=== PATIENT | male | born 1985 | race Caucasian/White ===

== ENCOUNTER 2020-05-28 21:58 | Emergency (ER) | payer OTHER, SELFPAY ==
[2020-05-28 22:36] VITALS: BP 124/67; PULSE 80; RESP 18; TEMP 36.7; O2SAT 98; BMI 18.0
--- NOTE | 2020-05-28 23:02 | ED_ITS ---
HPI - Male Genitourinary General Chief complaint: Urogenital-Male Stated complaint: genital pain Time Seen by Provider: 05/28/20 22:54 Source: patient Mode of arrival: ambulatory Limitations: no limitations History of Present Illness HPI Narrative: 35-year-old male with no significant past medical history presents with penile discharge, penile pain, and tissue excoriation for approximately 2 weeks. He does report having unprotected sex with a new partner. He does report dysuria. He does not describe any testicular pain, fevers, chills, suprapubic pain, abdominal pain, nausea, vomiting, diarrhea, constipation, or any other concerning symptoms. MD Complaint: penile discharge, dysuria and possible STD exposure Onset (ago): week(s) (2) Duration: constant Location: penis Severity: moderate Severity scale (1-10): 7 Quality: aching and burning Relieving factors: none Exacerbating factors: urination, palpation, movement and sexual intercourse Context: known STD exposure Associated symptoms: Reports discharge, rash and dysuria Related Data Sexually active: Yes Previous Rx's Medication Instructions Recorded doxycycline monohydrate 100 mg PO BID 10 Days #20 tab 05/28/20 Allergies Allergy/AdvReac Type Severity Reaction Status Date / Time No Known Allergies Allergy Verified 05/28/20 22:27 [No Known Allergies*] Review of Systems Review of Systems: Constitutional: No Fever, No Chills ENT/Mouth: No Ear Pain, No Hoarseness, No sore throat Eyes: No Eye Pain, No Swelling, No Redness, No Foreign Body Cardiovascular: No Chest Pain, No SOB Respiratory: No Cough, No Dyspnea Gastrointestinal: No Nausea, No Vomiting, No Diarrhea, No abdominal Pain Genitourinary: Positive penile discharge, penile irritation and erythema, Dysuria, No Hematuria Musculoskeletal: No joint pain, No Myalgias, No Joint Swelling Skin: No Skin lacerations, No rash Neuro: No Weakness, No Numbness, No Paresthesias, No Loss of Consciousness, No Dizziness, No Headache Psych: No Anxiety/Panic, No Depression Heme/Lymph: no easy bruising, no Lymphadenopathy Endocrine: No Polyuria, No Polydipsia Yes all other systems are reviewed and are negative [facility] Past Medical History Attestation statement: The following information was validated with the patient. Medical History (Updated 05/28/20 @ 23:47 by Morelia Acosta NP) Healthy adult Social History Social History Advance Directives: No Physical Exam Vital Signs: Vital Signs: Last Vital Signs Temp 99.1 F 05/29/20 00:00 Pulse 65 05/29/20 00:00 Resp 18 05/29/20 00:00 BP 117/79 05/29/20 00:00 Pulse Ox 100 05/29/20 00:00 Body Mass Index 18.0 Appearance: Alert. Oriented X3. Moderate distress. Eyes: Pupils equal, round and reactive to light. ENT: Pharynx normal. Neck: Normal inspection. Neck supple. CVS: Normal heart rate and rhythm. Pulses normal. Respiratory: No respiratory distress. Breath sounds normal. Abdomen: Soft and nontender. Skin: Skin warm and dry. Normal skin color. Normal skin turgor. Genitourinary: Erythema and excoriation to the glans, shaft and foreskin of the penis, copious amounts of clear drainage, chancer noted to the base of his penis. Testicular exam is normal, no pain to testicles, no lymphadenopathy to inguinal Extremities: No lower extremity edema. Neuro: No motor deficit. No sensory deficit. Course Course Course Narrative: 35-year-old male presents with penile pain, penile discharge, penile excoriation and dysuria for 2 weeks after unprotected sex. Plan of care is to test and treat for chlamydia, gonorrhea, and syphilis. Patient has excoriation to the glans and foreskin is extensive consistent with STI epididymitis and balantitis. We will add a 10 day course of doxycycline and encourage patient to refrain from sexual activity until he is symptom-free. Patient verbalized understanding of and agrees to plan of care to discharge home. MDM - Male Genitourinary MDM Narrative Medical decision making narrative: Sexually transmitted infection Differential Diagnosis Differential diagnosis: Likely urinary tract infection, urethritis, epididymitis and genital herpes simplex Medical Records Attestation: I reviewed the patient's medical records. Lab Data Attestation: I reviewed the patient's lab results. Labs: Lab Results 05/28/20 Range/Units 22:43 Urine Color YELLOW Urine Appearance CLEAR Urine pH 6.5 (5.0-8.0) Ur Specific Benedict 1.025 (1.005-1.025) Urine Protein NEG (NEG-TRACE) MG/DL Urine Glucose (UA) NEG (NEG) MG/DL Urine Ketones NEG (NEG) MG/DL Urine Blood NEG (NEG) Urine Nitrite NEG (NEG) Ur Leukocyte Esterase NEG (NEG) Discharge Plan Discharge Clinical Impression: Sexually transmitted infection, Epididymitis, Urethritis Patient Disposition: Home, Self-Care Instructions: Sexually Transmitted Diseases (ED), Epididymitis (ED) Additional Instructions: Se le evalu? y se le trat? para la clamidia, la gonorrea y la s?filis. Te tratamos con ceftriaxona, azitromicina y penicilina. Por favor, tome doxiciclina chet los pr?ximos 10 d?as. Abstenerse de la actividad sexual hasta que los s?ntomas se hayan aclarado y haya completado irasema antibi?ticos. Si los s?ntomas persisten, shine un seguimiento con tapices y con page m?dico de atenci?n primaria. Matt por elegir selena departamento de emergencias para la evaluaci?n. Por favor, shine un seguimiento con el m?dico de atenci?n primaria seg?n sea necesario. Regrese al servicio de urgencias para cualquier s?ntoma nuevo, preocupante o que empeore. You were evaluated and treated for chlamydia, gonorrhea and syphilis. We did treat you with ceftriaxone, azithromycin and penicillin. Please take doxycycline for the next 10 days. Refrain from sexual activity until symptoms have cleared and you have completed your antibiotics. If symptoms persist please follow-up with [facility] and or your primary care physician. Thank you for choosing this emergency department for evaluation. Please follow- up with primary care physician as needed. Return to the emergency department for any new, concerning, or worsening symptoms. Prescriptions: New doxycycline monohydrate 100 mg tablet 100 mg PO BID 10 Days Qty: 20 RF: 0 Print Language: Bahamian
[2020-05-28 23:14] LABS: Glucose Urine UA NEG (NEG); Leukocyte Esterase Urine NEG (NEG); Nitrite Urine NEG (NEG); PH 6.5 (5.0-8.0); Specific Gravity - Urine 1.025 (1.005-1.025); Urine Blood NEG (NEG); Urine Ketones NEG (NEG); Urine Protein NEG (NEG-TRACE)
[2020-05-28 23:15] LABS: Appearance Urine CLEAR; Color Urine YELLOW
[2020-05-28] MEDS: Azithromycin 500 MG TABLET 1000 MG PO (23:24)
[2020-05-28] MEDS: cefTRIAXone sodium 500 MG, Lidocaine HCl 1 % MPF 1 ML IM (23:25)
[2020-05-28] MEDS: Penicillin G Benzathine 2,400,000 UNIT/4 ML SYRINGE 2400000 UNIT IM (23:26)
[2020-05-29] VITALS: BP 117/79; PULSE 65; RESP 18; TEMP 37.3; O2SAT 100
[2020-05-29 04:10] LABS: Syphilis Screen Nonreactive (Nonreactive)
[2020-05-30 18:27] LABS: C. trachomatis RNA TMA DETECTED (NOT DETECTED); N. gonorrhoeae RNA TMA NOT DETECTED (NOT DETECTED)
== END 2020-05-29 01:30 | disposition home or self-care (01) ==
PROVIDERS: Nurse Practitioner Family; Emergency Provider Emergency Medicine
DX: N45.1 Epididymitis (principal); N34.2 Other urethritis; Z20.2 Contact with and (suspected) exposure to infections with a predominantly sexual mode of transmission
CPT/HCPCS: 36415; 81003; 86780; 87491; 87591; 96372; 99284; J0561; J0696

== ENCOUNTER 2021-09-08 07:22 | Emergency (ER) | payer OTHER, SELFPAY ==
[2021-09-08 07:28] VITALS: BP 131/66; PULSE 90; RESP 20; TEMP 36.8; O2SAT 99; BMI 17.7
--- NOTE | 2021-09-08 08:14 | ED_ITS ---
HPI - Abdominal Pain General Chief Complaint: Abdominal Pain Stated Complaint: Abd/Vomiting Time Seen by Provider: 09/08/21 08:07 Source: patient, family and sign language interpreter Mode of arrival: ambulatory Limitations: no limitations History of Present Illness HPI narrative: 36-year-old male came in for evaluation of abdominal pain, vomiting. Patient's symptoms started since yesterday after ate cheese sticks at a resta urant, another family member ate same food and presented with the same symptoms to the ED, patient is complaining of epigastric pain associated with nausea and vomiting with nonbloody watery diarrhea no fever, patient declined any recent use of antibiotic or recent travel. No past surgical history. Related Data Previous Rx's Medication Instructions Recorded doxycycline monohydrate 100 mg 100 mg PO BID 10 Days #20 tab 05/28/20 tablet omeprazole 20 mg capsule,delayed 20 mg PO BID #30 cap 09/08/21 release ondansetron HCl 4 mg tablet 4 mg PO Q8H PRN 3 Days #6 tab 09/08/21 Allergies Allergy/AdvReac Type Severity Reaction Status Date / Time No Known Allergies Allergy Verified 05/28/20 22:27 [No Known Allergies*] Review of Systems Review of Systems All other systems are reviewed and are negative Constitutional: Reports as per HPI and Reports no additional constitutional complaints Eyes: Reports as per HPI and Reports no additional eye complaints Reports system reviewed and no additional complaints, except as documented Cardiovascular: Reports as per HPI and Reports no additional cardiovascular complaints Respiratory: Reports as per HPI and Reports no additional respiratory complaints Gastrointestinal: Reports as per HPI and Reports no additional gastrointestinal complaints Genitourinary: Reports no additional female genitourinary complaints Musculoskeletal: Reports no additional musculoskeletal complaints Skin/Breast: Reports system reviewed and no additional complaints, except as docu Psychiatric: Reports no additional psychiatric complaints Endocrine: Reports no additional endocrine complaints Hematologic/Lymphatic: Reports no additional hematologic/lymphatic complaints Allergic/Immunologic: Reports no additional allergic/immunologic complaints Reports system reviewed and no additional complaints, except as documented and Reports Abnormal speech present [facility] Past Medical History Medical History Healthy adult Social History Social History Advance Directives: No Advance Directives Information Provided: No Physical Exam ED Vital Signs: Vital Signs - 24 hr 09/08/21 07:28 09/08/21 08:28 Temperature 98.2 F 98.6 F Pulse Rate 90 90 Respiratory Rate 20 15 Blood Pressure 131/66 112/70 Pulse Oximetry 99 100 BMI result Body Mass Index 17.7 Vital signs have been reviewed as appeared to be correct. Blood pressure normal. Heart rate normal. Respiration rate normal. Temperature normal. Oxygen saturation normal. Appearance: Alert. Oriented X3. No acute distress. Head: Normal external exam. Normocephalic. Atraumatic. No Kumar signs noted. No raccoon eyes noted Eyes: PERRLA. EOMI. Conjunctiva and sclera normal. Eyelids normal. ENT: TM's Normal. Pharynx normal. Uvula midline. Moist mucous membranes. No trismus noted. No drooling noted. No muffled voice noted. Neck: Normal inspection. Neck supple. FROM. No adenopathy. Thyroid Normal. No meningeal signs. No neck mass noted. CVS: Normal heart rate and rhythm. Heart sound normal. No murmurs noted. Pulses normal throughout. Respiratory: No respiratory distress. Painless inspiration. Breath sounds normal. No wheezes/rales/rhonchi noted. Chest nontender. No accessory muscle usage noted or decreased air movement noted. Abdomen: Soft, epigastric tenderness, no rebound tenderness, no guarding. Bowel sounds normal in all 4 quadrants. No distention noted. No organomegaly noted. No visible injury noted. Back: No CVA tenderness. Full range of motion noted. Skin: Skin warm and dry. Normal skin color. Normal skin turgor. No rashes/lesions/lacerations noted. Extremities: No lower extremity edema. Extremities exhibit normal range of motion. Extremities nontender. Neuro: Oriented X 3. Cranial nerve exam: II-XII are grossly intact No motor deficit. No sensory deficit. Reflexes normal. Course Course Course Narrative: Assessment and plan. 36-year-old male came in with other family member with similar symptoms of abdominal pain, nausea, vomiting, and diarrhea after eating outside at the wrist [employer], patient was received IV hydration and Pepcid with Zofran now is feeling better able to tolerate p.o. intake. MDM - Abdominal Pain Lab Data Attestation: I reviewed the patient's lab results. Result diagrams: 09/08/21 08:30 09/08/21 08:30 Labs: Lab Results 09/08/21 09/08/21 Range/Units 08:30 08:30 WBC 14.4 H (4.8-10.8) X10*3/uL RBC 5.30 (4.60-5.80) X10*6/uL Hgb 16.3 (14.0-18.0) g/dl Hct 48.5 (42.0-52.0) % MCV 91.5 (80.0-98.0) fL MCH 30.8 (27.0-33.0) pg MCHC 33.6 (31.0-36.0) g/dl RDW 12.5 (11.0-16.0) % Plt Count 308 (160-400) X10*3/uL MPV 10.2 (9.4-12.4) fL Immature Gran % (Auto) 0.4 (0.0-0.4) % Neut % (Auto) 92.1 H (45-73) % Lymph % (Auto) 1.7 L (20-40) % [place] % (Auto) 5.4 (2-11) % Eos % (Auto) 0.2 (0-4) % Baso % (Auto) 0.2 (0-2) % Lymph # (Auto) 0.3 L (1.2-4.9) X10*3/uL [place] # (Auto) 0.8 (0.1-1.2) X10*3/uL Eos # (Auto) 0.0 (0.0-0.4) X10*3/uL Baso # (Auto) 0.0 (0.0-0.2) X10*3/uL Abs Immat Gran (auto) 0.06 H (0.00-0.03) X10*3/uL Absolute Neuts (auto) 13.3 H (2.0-8.3) x10*3/uL Absolute Nucleated RBC 0.000 (0.0-0.012) X10*3/uL Nucleated RBC % (auto) 0.0 (0.0-0.2) /100WBC Smear Tech's Comments VERIFIED Sodium 138 (135-145) mmol/L Potassium 5.4 H (3.3-5.1) mmol/L Chloride 104 (96-108) mmol/L Carbon Dioxide 26 (22-29) mmol/L Anion Gap 13 (12-20) BUN 19 H (9-16) mg/dL Creatinine 1.06 (0.5-1.4) mg/dL Estim Creat Clear Calc 74.8 Estimated GFR > 60 Random Glucose 130 H (60-115) mg/dL Calcium 9.8 (8.4-10.2) mg/dL Total Bilirubin 1.0 (0.0-1.0) mg/dL Direct Bilirubin 0.3 (0.0-0.5) mg/dL AST 27 (5-37) U/L ALT 22 (0-40) U/L Alkaline Phosphatase 75 (39-117) U/L Total Protein 7.7 (6.5-8.0) g/dL Albumin 4.3 (3.5-5.0) g/dL Lipase 29 (8-78) U/L Discharge Plan Discharge Clinical Impression: Gastroenteritis Patient Disposition: Home, Self-Care Instructions: Gastroenteritis (ED) Prescriptions: New ondansetron HCl 4 mg tablet 4 mg PO Q8H PRN (Reason: nausea and vomiting) 3 Days Qty: 6 0RF omeprazole 20 mg capsule,delayed release(DR/EC) 20 mg PO BID Qty: 30 0RF No Action doxycycline monohydrate 100 mg tablet 100 mg PO BID 10 Days Qty: 20 0RF Referrals: Physician,None [Primary Care Provider] -
[2021-09-08 08:28] VITALS: BP 112/70; PULSE 90; RESP 15; TEMP 37; O2SAT 100
[2021-09-08] MEDS: ondansetron HCL 4 MG/2 ML VIAL IVPUSH (08:34)
[2021-09-08] MEDS: Famotidine/PF 20 MG/2 ML VIAL IVPUSH (08:34)
[2021-09-08] MEDS: 0.9 % Sodium Chloride 1,000 ML 999 ML IV (08:34)
[2021-09-08] MEDS: Magnesium Hydrox/Alum Hydrox 30 ML ORAL.SUSP PO (08:34)
[2021-09-08 08:36] LABS: Basophils Percent Auto 0.2 % (0-2); Eosinophils Percent Auto 0.2 % (0-4); Hematocrit 48.5 % (42.0-52.0); Hemoglobin 16.3 g/dl (14.0-18.0); Imm Gran Abs Auto 0.06 X10*3/uL (0.00-0.03); Imm Gran Pct Auto 0.4 % (0.0-0.4); Lymphocytes Absolute Auto 0.3 X10*3/uL (1.2-4.9); Lymphocytes Percent Auto 1.7 % (20-40); MANUAL DIFF FLAG SCAN; Mean Corpuscular HGB Conc 33.6 g/dl (31.0-36.0); Mean Corpuscular Hemoglobin 30.8 pg (27.0-33.0); Mean Corpuscular Volume 91.5 fL (80.0-98.0); Mean Platelet Volume 10.2 fL (9.4-12.4); Monocytes Absolute Auto 0.8 X10*3/uL (0.1-1.2); Monocytes Percent Auto 5.4 % (2-11); Neutrophils Absolute Auto 13.3 x10*3/uL (2.0-8.3); Neutrophils Percent Auto 92.1 % (45-73); Platelet Count 308 X10*3/uL (160-400); Red Cell Distribution Width 12.5 % (11.0-16.0); SCAN SMEAR FLAG 1; White Blood Count 14.4 X10*3/uL (4.8-10.8)
[2021-09-08 09:04] LABS: Alanine Aminotransferase 22 U/L (0-40); Albumin Level 4.3 g/dL (3.5-5.0); Alkaline Phosphatase 75 U/L (39-117); Anion Gap 13 (12-20); Aspartate Amino Transferase 27 U/L (5-37); Bilirubin Direct 0.3 mg/dL (0.0-0.5); Blood Urea Nitrogen 19 mg/dL (9-16); Calcium 9.8 mg/dL (8.4-10.2); Carbon Dioxide 26 mmol/L (22-29); Chloride 104 mmol/L (96-108); Creatinine Clr Calc Pharmacy 74.8; Estimated Glomerular Filt Rate > 60; Glucose Random 130 mg/dL (60-115); Lipase 29 U/L (8-78); Potassium 5.4 mmol/L (3.3-5.1); Sodium 138 mmol/L (135-145); Total Protein 7.7 g/dL (6.5-8.0)
[2021-09-08 09:17] LABS: SLIDE REVIEW VERIFIED
== END 2021-09-08 12:08 | disposition home or self-care (01) ==
PROVIDERS: Emergency Provider Emergency Medicine
DX: K52.9 Noninfective gastroenteritis and colitis, unspecified (principal); R10.13 Epigastric pain; R11.2 Nausea with vomiting, unspecified; Z79.899 Other long term (current) drug therapy
CPT/HCPCS: 36415; 80048; 80076; 83690; 85025; 96361; 96374; 96375; 99284; J2405

== ENCOUNTER 2024-03-24 19:45 | Emergency (ER) | payer OTHER, SELFPAY ==
--- NOTE | ~2024-03-24 | XR_ITS ---
EXAMINATION: XR LUMBOSACRAL SPINE CLINICAL INFORMATION: Pain COMPARISON: None available. TECHNIQUE: Three views of the lumbosacral spine. FINDINGS: Mild scoliosis convex right. The vertebral bodies and posterior elements are normal. The disc spaces are preserved and the vertebral alignment is normal. The paraspinal soft tissues are normal. XR/XR lumbar spine 2-3V IMPRESSION: No acute findings. Mild scoliosis. Electronically signed by: Berny Park MD 03/24/2024 08:51 PM EDT RP
[2024-03-24 20:02] VITALS: BP 120/79; PULSE 130; RESP 20; TEMP 36.3; O2SAT 98
--- NOTE | 2024-03-24 20:04 | ED.BACK ---
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 noticed slight low back went home was doing okay next day when he woke up pain got worse no radiating of pain to lower extremity no paresthesia no motor weakness no bladder or bowel involvement no prior history of low back pain no history of kidney stones Related Data Previous Rx's ?Medication ?Instructions ?Recorded doxycycline monohydrate 100 mg 100 mg PO BID 10 days #20 tabs 05/28/20 tablet omeprazole 20 mg capsule,delayed 20 mg PO BID #30 caps 09/08/21 release ondansetron HCl 4 mg tablet 4 mg PO Q8H PRN nausea and 09/08/21 vomiting 3 days #6 tabs cyclobenzaprine 10 mg tablet 10 mg PO Q8H #20 tabs 03/24/24 morphine 15 mg immediate release 15 mg PO Q8H PRN pain #15 tabs 03/24/24 tablet Allergies Allergy/AdvReac Type Severity Reaction Status Date / Time No Known Allergies Allergy Verified 03/24/24 20:06 [No Known Allergies*] Review of Systems Review of Systems: Yes all other systems are reviewed and are negative PMFSH Past Medical History Medical History Healthy adult Social History Social History Smoked in Last 30 Days: No Use of substances other than those prescribed or required for medical reasons: No Advance Directives: No Advance Directives Information Provided: No Physical Exam Vital Signs: Vital Signs: Last Vital Signs Temp 98.7 F 03/24/24 23:10 Pulse 70 03/24/24 23:10 Resp 15 03/24/24 23:10 BP 120/72 03/24/24 23:10 Pulse Ox 99 03/24/24 23:10 O2 Del Method Room Air 03/24/24 23:10 BMI result Body Mass Index 20.0 Appearance: Alert. Oriented X3. No acute distress. Eyes: PERRLA, No Nystagmus ENT: Pharynx normal. Oral Mucosa moist Neck: Normal inspection. Neck supple. CVS: Normal heart rate and rhythm. Pulses normal. Respiratory: No respiratory distress. Equal air entry bilateral, no wheezing/rales/rhonchi Abdomen: Soft and nontender. Bowel sounds are present, no mass palpable, no CVA tenderness Skin: Skin warm and dry. Normal skin color. Normal skin turgor. ally Extremities: No lower extremity edema. No calf tenderness tenderness left area of the lumbar spine SLR positive at 60 degrees on right side Neuro: Oriented X 3. No motor deficit. No sensory deficit.No cerebellar signs , cranial nerves II-XII intact Course Course Course Narrative: This is a Rapid Medical Examination (RME) performed by Ward Morales PA-C in triage. Full HPI, ROS, assessment and treatment plan per primary provider in the Main ED. 39 yo male here for eval of low back pain which began 7 hours into a 10 hour work shift on wednesday. 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 no OTC meds. trialing heat/ ice. no hx of ivdu. no saddle anesthesia or bowel or bladder incontinence or retention. no urinary symptoms. reports his heart rate is elevated due to the pain. denies chest pain or palpitations. + tachy to 120s/130s. appears uncomfortable, does not want to sit d/t pain. Plan: ekg, labs, imaging Medications Administered Discontinued Medications Generic Name Dose Route Start Last Admin Trade Name Freq PRN Reason Stop Dose Admin Cyclobenzaprine HCl 10 mg 03/24/24 23:03 03/24/24 23:11 Cyclobenzaprine Hcl 10 Mg Tablet PO 03/24/24 23:04 10 mg ONCE ONE Administration Morphine Sulfate 15 mg 03/24/24 23:03 03/24/24 23:12 Morphine Sulfate Immed Release 15 Mg Tablet PO 03/24/24 23:04 15 mg ONCE ONE Administration Medical Decision Making Medical Decision Making [facility] Narrative: Patient with lumbar strain no signs of spinal cord injury x-ray negative will discharge patient home on pain medication muscle relaxer Lab Data [facility] Lab Attestation statement: I reviewed the patient's lab results. 03/24/24 20:23 03/24/24 20:23 Labs: Lab Results 03/24/24 Range/Units 20:23 WBC 8.8 (4.8-10.8) X10*3/uL RBC 5.27 (4.60-5.80) X10*6/uL Hgb 16.6 (14.0-18.0) g/dl Hct 47.8 (42.0-52.0) % MCV 90.7 (80.0-98.0) fL MCH 31.5 (27.0-33.0) pg MCHC 34.7 (31.0-36.0) g/dl RDW 12.3 (11.0-16.0) % Plt Count 343 (160-400) X10*3/uL MPV 9.8 (9.4-12.4) fL Immature Gran % (Auto) 0.3 (0.0-0.4) % Neut % (Auto) 68.5 (45-73) % Lymph % (Auto) 20.8 (20-40) % [place] % (Auto) 8.0 (2-11) % Eos % (Auto) 1.8 (0-4) % Baso % (Auto) 0.6 (0-2) % Lymph # (Auto) 1.8 (1.2-4.9) X10*3/uL [place] # (Auto) 0.7 (0.1-1.2) X10*3/uL Eos # (Auto) 0.2 (0.0-0.4) X10*3/uL Baso # (Auto) 0.1 (0.0-0.2) X10*3/uL Abs Immat Gran (auto) 0.03 (0.00-0.03) X10*3/uL Absolute Neuts (auto) 6.0 (2.0-8.3) x10*3/uL Absolute Nucleated RBC 0.000 (0.0-0.012) X10*3/uL Nucleated RBC % (auto) 0.0 (0.0-0.2) /100WBC Sodium 141 (135-145) mmol/L Potassium 4.4 (3.3-5.1) mmol/L Chloride 105 (96-108) mmol/L Carbon Dioxide 27 (22-29) mmol/L Anion Gap 13 (12-20) BUN 13 (9-16) mg/dL Creatinine 0.93 (0.5-1.4) mg/dL Estim Creat Clear Calc 90.9 Estimated GFR > 60 Random Glucose 87 (60-115) mg/dL Calcium 10.0 (8.4-10.2) mg/dL Magnesium 2.0 (1.6-2.6) mg/dL Total Bilirubin 0.4 (0.0-1.0) mg/dL AST 25 (5-37) U/L ALT 35 (0-40) U/L Alkaline Phosphatase 69 (39-117) U/L Total Protein 7.6 (6.5-8.0) g/dL Albumin 4.2 (3.5-5.0) g/dL Independent Interpretation I performed an independent interpretation of an: Plain X-Ray Radiology Impression Discussion of test interpretation with radiology: I have reviewed the radiologist's reading. Radiologist Impression: [address] [address] XRay Report Signed Patient: Stiven Cobian MR#: [id number] : 1985 Acct:[id number] Age/Sex: 39 / M ADM Date: 03/24/24 Loc: .ED Attending Dr: Ordering Physician: Nevin Morales Date of Service: 03/24/24 Procedure(s): XR lumbar spine 2-3V Accession Number(s): [id number] cc: Physician,None ; Nevin Morales~ EXAMINATION: XR LUMBOSACRAL SPINE CLINICAL INFORMATION: Pain COMPARISON: None available. TECHNIQUE: Three views of the lumbosacral spine. FINDINGS: Mild scoliosis convex right. The vertebral bodies and posterior elements are normal. The disc spaces are preserved and the vertebral alignment is normal. The paraspinal soft tissues are normal. XR/XR lumbar spine 2-3V IMPRESSION: No acute findings. Mild scoliosis. Electronically signed by: Berny Park MD 03/24/2024 08:51 PM EDT Discharge Plan Discharge Clinical Impression: Strain of lumbar region Patient Disposition: Home, Self-Care Instructions: Low Back Strain (ED), Lower Back Exercises (ED) Additional Instructions: Take pain medication muscle relaxant as prescribed Follow with your PCP if not better Prescriptions: New cyclobenzaprine 10 mg tablet 10 mg PO Q8H Qty: 20 0RF morphine 15 mg tablet 15 mg PO Q8H PRN (Reason: pain) Qty: 15 0RF Rx Instructions: Partial Fill upon patient request. No Action doxycycline monohydrate 100 mg tablet 100 mg PO BID 10 Days Qty: 20 0RF ondansetron HCl 4 mg tablet 4 mg PO Q8H PRN (Reason: nausea and vomiting) 3 Days Qty: 6 0RF omeprazole 20 mg capsule,delayed release(DR/EC) 20 mg PO BID Qty: 30 0RF Stand Alone Forms: Work/School Release Print Language: Senegalese
--- NOTE | 2024-03-24 20:07 | ECG_ITS ---
Test Reason : tachycardia Blood Pressure : / mmHG Vent. Rate : 100 BPM Atrial Rate : 100 BPM P-R Int : 120 ms QRS Dur : 088 ms QT Int : 320 ms P-R-T Axes : 080 064 068 degrees QTc Int : 412 ms Normal sinus rhythm Normal ECG No previous ECGs available Referred By: Nevin Morales Electronically Signed By:ROSS GLEZ
[2024-03-24 20:28] LABS: MANUAL DIFF FLAG NO
[2024-03-24 20:30] LABS: Basophils Absolute Auto 0.1 X10*3/uL (0.0-0.2); Basophils Percent Auto 0.6 % (0-2); Eosinophils Absolute Auto 0.2 X10*3/uL (0.0-0.4); Eosinophils Percent Auto 1.8 % (0-4); Hematocrit 47.8 % (42.0-52.0); Hemoglobin 16.6 g/dl (14.0-18.0); Imm Gran Abs Auto 0.03 X10*3/uL (0.00-0.03); Imm Gran Pct Auto 0.3 % (0.0-0.4); Lymphocytes Absolute Auto 1.8 X10*3/uL (1.2-4.9); Lymphocytes Percent Auto 20.8 % (20-40); Mean Corpuscular HGB Conc 34.7 g/dl (31.0-36.0); Mean Corpuscular Hemoglobin 31.5 pg (27.0-33.0); Mean Corpuscular Volume 90.7 fL (80.0-98.0); Mean Platelet Volume 9.8 fL (9.4-12.4); Monocytes Absolute Auto 0.7 X10*3/uL (0.1-1.2); Neutrophils Percent Auto 68.5 % (45-73); Platelet Count 343 X10*3/uL (160-400); Red Blood Count 5.27 X10*6/uL (4.60-5.80); Red Cell Distribution Width 12.3 % (11.0-16.0); White Blood Count 8.8 X10*3/uL (4.8-10.8)
[2024-03-24 20:44] LABS: Alanine Aminotransferase 35 U/L (0-40); Albumin Level 4.2 g/dL (3.5-5.0); Alkaline Phosphatase 69 U/L (39-117); Anion Gap 13 (12-20); Aspartate Amino Transferase 25 U/L (5-37); Bilirubin Total 0.4 mg/dL (0.0-1.0); Blood Urea Nitrogen 13 mg/dL (9-16); Carbon Dioxide 27 mmol/L (22-29); Chloride 105 mmol/L (96-108); Creatinine Clr Calc Pharmacy 90.9; Estimated Glomerular Filt Rate > 60; Glucose Random 87 mg/dL (60-115); Potassium 4.4 mmol/L (3.3-5.1); Sodium 141 mmol/L (135-145); Total Protein 7.6 g/dL (6.5-8.0)
--- NOTE | 2024-03-24 21:53 | PC.NURSE ---
pt from the lobby, assume care of pt at this time
[2024-03-24 23:10] VITALS: BP 120/72; PULSE 70; RESP 15; TEMP 37.1; O2SAT 99
[2024-03-24] MEDS: Cyclobenzaprine HCl 10 MG TABLET PO (23:11)
[2024-03-24] MEDS: Morphine Sulfate Immed Release 15 MG TABLET PO (23:12)
[2024-03-24 23:54] VITALS: BP 120/72; PULSE 70; RESP 15; TEMP 37.1; O2SAT 99
== END 2024-03-24 23:55 | disposition home or self-care (01) ==
PROVIDERS: Physician Assistant Medical; Emergency Provider Internal Medicine
DX: S39.012A Strain of muscle, fascia and tendon of lower back, initial encounter (principal); R00.0 Tachycardia, unspecified; X58.XXXA Exposure to other specified factors, initial encounter; Y93.89 Activity, other specified; Y92.89 Other specified places as the place of occurrence of the external cause; Y99.8 Other external cause status; Z79.899 Other long term (current) drug therapy
CPT/HCPCS: 36415; 72100; 80053; 83735; 85025; 93005; 99283; 99285

== ENCOUNTER → 2024-03-24 20:07 | Outpatient (BNV) | payer OTHER, SELFPAY | PROVIDERS: Emergency Provider Internal Medicine; Visit Provider Internal Medicine | DX: R00.0 Tachycardia, unspecified (principal) | CPT/HCPCS: 93010 ==